=== PATIENT | female | born 1965 | race Caucasian/White ===

== ENCOUNTER 2016-07-07 13:05 | Observation (INO) | payer SELFPAY ==
[~2016-07-07] VITALS: Ht 167.6 cm; Wt 86.6 kg
[2016-07-07 13:43] LABS: PH 5 (5-8); SQUAMOUS EPITHELIAL 0-2 /hpf; URINE APPEARANCE Clear; URINE BACTERIA Rare /hpf; URINE BILIRUBIN Negative (NEGATIVE); URINE BLOOD 3+ (NEGATIVE); URINE COLOR Yellow; URINE GLUCOSE Negative (NEGATIVE); URINE KETONE Negative (NEGATIVE); URINE RBC 20-50 /hpf; URINE UROBILINOGEN Negative (NEGATIVE); URINE WBC 0-2 /hpf
[2016-07-07 14:16] LABS: BASO % 0.4 % (0.0-2.0); EOS # 0.1 (0.0-0.7); EOS % 1.4 % (0-4.0); GRAN # 5.9 (1.4-6.5); GRAN % 75.9 % (42.2-75.2); HEMATOCRIT 38.9 % (37.0-47.0); HEMOGLOBIN 13.2 g/dl (12.5-16.0); LYMPH # 1.2 (1.2-3.4); LYMPH % 15.3 % (20.0-51.0); MEAN CELL VOLUME 88 fl (80.0-100.0); MEAN CORPUSCULAR HEMOGLOBIN 30 pg (27.0-31.0); MEAN CORPUSCULAR HGB CONC 34 g/dl (33.0-37.0); MEAN PLATELET VOLUME 10.8 fl (7.4-10.4); MONO # 0.5 (0.1-0.6); MONO % 6.6 % (1.7-9.3); PLATELET COUNT 210 K/mm3 (130-400); RED BLOOD COUNT 4.42 M/mm3 (4.10-5.30); REDCELL DISTRIBUTION WIDTH-CV 13.1 % (11.5-14.5); WHITE BLOOD COUNT 7.7 K/mm3 (4.8-10.8)
[2016-07-07 14:55] LABS: ADJUSTED CALCIUM 9.1 mg/dL (8.4-10.2); ALBUMIN 3.9 gm/dL (3.5-5.0); CREATININE, serum 0.71 mg/dL (0.52-1.25); POTASSIUM 3.5 mmol/L (3.4-5.0)
[2016-07-07] MEDS ORDERED: ASTHMA INH (17:00)
[2016-07-07 18:12] VITALS: BP 141/83; PULSE 59; TEMP 98.5
[2016-07-07 20:00] VITALS: BP 107/64; PULSE 51; TEMP 97.8
[2016-07-07] MEDS ORDERED: DULERA1 AR1 IH (22:44)
[2016-07-07] MEDS ORDERED: CLARITIN 1010 MG/TAB PO (22:45)
[2016-07-08] VITALS (11 sets, daily range): BP systolic 103–132; BP diastolic 54–82; PULSE 49–76; TEMP 98–98.7
== END 2016-07-08 15:07 | disposition home or self-care (01) ==
LOC: COL.ER 13:05 → SURG 16:15
PROVIDERS: Physician Assistant
DX: N20.2 Calculus of kidney with calculus of ureter (principal); Z87.442 Personal history of urinary calculi
CPT/HCPCS: C1769; C2617; G0378; G0379; J1100; J1885; J1956; J2270; J2405; J2704; J3010; J7030; J7120; Q9967